=== PATIENT | female | born 1990 | race Caucasian/White ===

== ENCOUNTER 2016-08-24 14:09 | Emergency (ER) | payer MEDICAID ==
[~2016-08-24] VITALS: Ht 175.3 cm; Wt 102.1 kg
[~2016-08-24 14:09] MED LIST: ACET1TAB43 PO; AMOX500C2 PO; BENZ56AE TP; CEPH-507 PO; CEPH500C PO; CLIN150C17 PO; CLIN300C11 PO; CODE-54 PO; CPR500T PO; DCS100C PO; DOCU100C37 PO; FERR-74 PO; FRS325T PO; HYOS0.1216 PO; IBUP-1773 PO; Ibuprofen PO; METR500T PO; ONDA-42 SL; ONDAN4ODT PO; PNT40TEC PO; PNV1TABL67 PO; PREN-53 PO; PREN1TAB71 PO
--- OUTSIDE RECORDS SUMMARY | 2016-08-24 14:16 | XMS REPORT | Continuity of Care Document ---
Author Author [facility] Organization [facility] Address Unknown Phone Unavailable Care Team Providers Care Med Care Manager Name Role Phone [facility] PCP Insurance Providers Payer Name Policy Number Subscriber Name Relationship [facility] [employer] [id number] Michelle Szymanski 19 Self / Same As Patient Advance Directives Directive Response Recorded Date/Time Advance Directives No 11/22/14 4:02pm Health Care Power of Collar Packer No 11/22/14 4:02pm Organ Donor No 11/22/14 4:02pm Resuscitation Status Full Code 11/22/14 4:02pm Problems Medical Problems Problem Onset Date Status Epigastric abdominal pain Unknown Active Urinary tract infection Unknown Active Generalized abdominal pain Unknown Active Diarrhea Unknown Active Nausea and vomiting Unknown Active Urinary tract infection Unknown Active Pain, abdominal, nonspecific Unknown Active Medications Medication Dose Route Sig Days/Qty Instructions Order Date Discontinued Date Status Ondansetron HCl 8 Mg PO EVERY 4HRS 30 Qty 10/12/12 01/23/13 Discontinued Amoxicillin 2 Each PO TWICE A DAY 10/15/12 01/23/13 Discontinued Metronidazole 1 Each PO TWICE A DAY 7 Days 01/30/13 02/14/14 Discontinued Cephalexin Monohydrate (Keflex) 1 Each PO FOUR TIMES DAILY 7 Days 01/3002/14/14 Discontinued Vit/Fe Fumarate/Fa 1 Tab PO DAILY 30 Qty 02/14/14 06/28/14 Discontinued Acetaminophen/Codeine 1-2 Tab PO EVERY 4HRS PRN MODERATE TO SEVERE PAIN 30 Qty 03/04/14 06/28/14 Discontinued Benzocaine/Menthol 0 Ml TP DIRECTED PRN PAIN 1 Qty 03/04/14 Discontinued Docusate Sodium 100 Mg PO TWICE A DAY 20 Qty 03/04/14 06/28/14 Discontinued Ferrous Sulfate 325 Mg PO DAILY@08 30 Qty 03/04/14 06/28/14 Discontinued [Ibuprofen] 600 Mg PO EVERY 6 HOURS 60 Qty 03/04/14 06/28/14 Discontinued Hyoscyamine Sulfate 1-2 Each PO Q4HR PRN PRN ABDOMINAL PAIN 10 Qty 10/07 Active Pantoprazole Sod 40 Mg PO DAILY 30 Qty 06/28/14 Active Ciprofloxacin 500 Mg PO TWICE A DAY 14 Qty 11/21/14 Active Ondansetron Hcl 4 Mg SL EVERY 4HRS PRN NAUSEA/VOMITING 10 Qty FOR NAUSEA AND VOMITING 11/21/14 Active Social History Social History Problem Response Recorded Date/Time Alcohol Use Rarely Uses 11/22/2014 4:02pm Recreational Drug Use No 11/22/2014 4:02pm Recent Foreign Travel No 03/03/2014 5:27am Recent Infectious Disease Exposure No 03/03/2014 5:27am Hospitalization with Isolation Denies 03/05/2014 1:54pm Sexually Transmitted Disease No 11/22/2014 4:02pm Smoking Status Current Everyday Smoker 11/22/2014 4:02pm Query Response Start Date Stop Date Smoking Status Current Everyday Smoker Hospital Discharge Instructions No hospital discharge instructions. Plan of Care No plan of care. Functional Status No functional status results. Allergies, Adverse Reactions, Alerts Allergen Type Severity Reaction Status Last Updated No Known Drug Allergies Active 10/12/12 Immunizations Name Given Type Tetanus Booster (TDap) Unknown Historical Vital Signs Acute Vital Signs Vital Response Date/Time Temperature (Fahrenheit) 97.6 degrees F (97.6 - 99.5) Temperature (Calculated Celsius) 36.90621 degrees C (36.4 - 37.5) Temperature Source Temporal Pulse Rate (adult) 60 bpm (60 - 90) Respiratory Rate 18 bpm (12 - 24) O2 Sat by Pulse Oximetry 98 % (88 - 100) Blood Pressure 114/53 mm Hg Pain Pain Intensity 5 Height (Feet) 5 feet Height (Inches) 10 inches Height (Calculated Centimeters) 177.920681 cm Weight (Pounds) 215 pounds Weight (Ounces) 0.6 oz Weight (Calculated Grams) 22593.361 gm Weight (Calculated Kilograms) 97.034465 kilograms Calculated BMI 30.85 Results Laboratory Results Test Name Result Units Flags Reference Collection Date/Time Result Date/ Time Comments White Blood Count 10.6 10^3/uL 4.3-11.0 11/21/2014 2:11/21/2014 2: 38am Red Blood Count 4.86 10^6/uL 4.35-5.85 11/21/2014 2:11/21/2014 2: 38am Hemoglobin 15.0 G/DL 11.5-16.0 11/21/2014 2:11/21/2014 2:38am Hematocrit 44 % 35-52 11/21/2014 2:11/21/2014 2:38am Mean Corpuscular Volume 90 FL 80-99 11/21/2014 2:11/21/2014 2: 38am Mean Corpuscular Hemoglobin 31 PG 25-34 11/21/2014 2:11/21/2014 2: 38am Mean Corpuscular Hemoglobin Concent 34 G/DL 32-36 11/21/2014 2: 2:38am Red Cell Distribution Width 12.6 % 10.0-14.5 11/21/2014 2:2014 2:38am Platelet Count 268 10^3/uL 130-400 11/21/2014 2:11/21/2014 2:38am Mean Platelet Volume 9.9 FL 7.4-10.4 11/21/2014 2:11/21/2014 2: 38am Neutrophils (%) (Auto) 60 % 42-75 11/21/2014 2:11/21/2014 2:38am Lymphocytes (%) (Auto) 30 % 12-44 11/21/2014 2:11/21/2014 2:38am Monocytes (%) (Auto) 7 % 0-12 11/21/2014 2:11/21/2014 2:38am Eosinophils (%) (Auto) 2 % 0-10 11/21/2014 2:11/21/2014 2:38am Basophils (%) (Auto) 0 % 0-10 11/21/2014 2:11/21/2014 2:38am Neutrophils # (Auto) 6.4 X 10^3 1.8-7.8 11/21/2014 2:11/21/2014 2: 38am Lymphocytes # (Auto) 3.2 X 10^3 1.0-4.0 11/21/2014 2:11/21/2014 2: 38am Monocytes # (Auto) 0.8 X 10^3 0.0-1.0 11/21/2014 2:11/21/2014 2: 38am Eosinophils # (Auto) 0.3 10^3/uL 0.0-0.3 11/21/2014 2:11/21/2014 2 :38am Basophils # (Auto) 0.0 10^3/uL 0.0-0.1 11/21/2014 2:11/21/2014 2: 38am Urine Color YELLOW 11/21/2014 2:11/21/2014 2:34am Urine Clarity CLEAR 11/21/2014 2:11/21/2014 2:34am Urine pH 6 5-9 11/21/2014 2:11/21/2014 2:34am Urine Specific [place] 1.020 1.016-1.022 11/21/2014 2:2014 2:34am Urine Protein 1+ * NEGATIVE 11/21/2014 2:11/21/2014 2:34am Urine Glucose (UA) NEGATIVE NEGATIVE 11/21/2014 2:11/21/2014 2: 34am Urine RBC (Auto) NEGATIVE NEGATIVE 11/21/2014 2:11/21/2014 2: 34am Urine Ketones NEGATIVE NEGATIVE 11/21/2014 2:11/21/2014 2:34am Urine Nitrite NEGATIVE NEGATIVE 11/21/2014 2:11/21/2014 2:34am Urine Bilirubin NEGATIVE NEGATIVE 11/21/2014 2:11/21/2014 2: 34am Urine Urobilinogen NORMAL MG/DL NORMAL 11/21/2014 2:11/21/2014 2: 34am Urine Leukocyte Esterase 2+ * NEGATIVE 11/21/2014 2:11/21/2014 2: 34am Urine RBC NONE /HPF 11/21/2014 2:11/21/2014 2:34am Urine WBC 10-25 /HPF * 11/21/2014 2:11/21/2014 2:34am Urine Bacteria LARGE /HPF * 11/21/2014 2:11/21/2014 2:34am Urine Squamous Epithelial Cells 25-50 /HPF * 11/21/2014 2:2014 2:34am Urine Crystals NONE /LPF 11/21/2014 2:11/21/2014 2:34am Urine Casts NONE /LPF 11/21/2014 2:11/21/2014 2:34am Urine Mucus LARGE /LPF * 11/21/2014 2:11/21/2014 2:34am Urine Culture Indicated YES 11/21/2014 2:11/21/2014 2:34am Sodium Level 138 MMOL/L 135-145 11/21/2014 2:11/21/2014 2:57am Potassium Level 3.9 MMOL/L 3.6-5.0 11/21/2014 2:11/21/2014 2:57am Chloride Level 107 MMOL/L 98-107 11/21/2014 2:11/21/2014 2:57am Carbon Dioxide Level 20 MMOL/L L 21-32 11/21/2014 2:11/21/2014 2: 57am Blood Urea Nitrogen 11 MG/DL 7-18 11/21/2014 2:11/21/2014 2:57am Creatinine 0.73 MG/DL 0.60-1.30 11/21/2014 2:11/21/2014 2:57am BUN/Creatinine Ratio 15 11/21/2014 2:11/21/2014 2:57am Estimat Glomerular Filtration Rate > 60 11/21/2014 2:2014 2:57am GFR INTERPRETIVE DATA UNITS FOR ESTIMATED GFR (eGFR): mL/min/1.73 M2 REFERENCE RANGE FOR ESTIMATED GFR (eGFR) eGFR NORMAL eGFR >60 MODERATELY DECREASED eGFR 30-59 SEVERLY DECREASED eGFR 15-29 KIDNEY FAILURE <15 (OR DIALYSIS) Glucose Level 88 MG/DL 70-105 11/21/2014 2:11/21/2014 2:57am Calcium Level 9.4 MG/DL 8.5-10.1 11/21/2014 2:11/21/2014 2:57am Magnesium Level 2.1 MG/DL 1.8-2.4 11/21/2014 2:11/21/2014 2:57am Total Bilirubin 0.4 MG/DL 0.1-1.0 11/21/2014 2:11/21/2014 2:57am Alkaline Phosphatase 95 U/L 40-136 11/21/2014 2:11/21/2014 2:57am Aspartate Amino Transf (AST/SGOT) 17 U/L 5-34 11/21/2014 2:2014 2:57am Alanine Aminotransferase (ALT/SGPT) 12 U/L 0-55 11/21/2014 2:11/21 2:57am Total Protein 7.2 G/DL 6.4-8.2 11/21/2014 2:11/21/2014 2:57am Albumin 4.3 G/DL 3.2-4.5 11/21/2014 2:11/21/2014 2:57am Lipase 27 U/L 8-78 11/21/2014 2:11/21/2014 2:57am White Blood Count 9.0 10^3/uL 4.3-11.0 11/22/2014 4:11/22/2014 4: 24pm Red Blood Count 4.68 10^6/uL 4.35-5.85 11/22/2014 4:11/22/2014 4: 24pm Hemoglobin 14.7 G/DL 11.5-16.0 11/22/2014 4:11/22/2014 4:24pm Hematocrit 43 % 35-52 11/22/2014 4:11/22/2014 4:24pm Mean Corpuscular Volume 91 FL 80-99 11/22/2014 4:11/22/2014 4: 24pm Mean Corpuscular Hemoglobin 31 PG 25-34 11/22/2014 4:11/22/2014 4: 24pm Mean Corpuscular Hemoglobin Concent 35 G/DL 32-36 11/22/2014 4: 4:24pm Red Cell Distribution Width 12.5 % 10.0-14.5 11/22/2014 4:2014 4:24pm Platelet Count 248 10^3/uL 130-400 11/22/2014 4:11/22/2014 4:24pm Mean Platelet Volume 10.0 FL 7.4-10.4 11/22/2014 4:11/22/2014 4: 24pm Neutrophils (%) (Auto) 63 % 42-75 11/22/2014 4:11/22/2014 4:24pm Lymphocytes (%) (Auto) 26 % 12-44 11/22/2014 4:11/22/2014 4:24pm Monocytes (%) (Auto) 7 % 0-12 11/22/2014 4:11/22/2014 4:24pm Eosinophils (%) (Auto) 3 % 0-10 11/22/2014 4:11/22/2014 4:24pm Basophils (%) (Auto) 0 % 0-10 11/22/2014 4:11/22/2014 4:24pm Neutrophils # (Auto) 5.7 X 10^3 1.8-7.8 11/22/2014 4:11/22/2014 4: 24pm Lymphocytes # (Auto) 2.4 X 10^3 1.0-4.0 11/22/2014 4:11/22/2014 4: 24pm Monocytes # (Auto) 0.6 X 10^3 0.0-1.0 11/22/2014 4:11/22/2014 4: 24pm Eosinophils # (Auto) 0.3 10^3/uL 0.0-0.3 11/22/2014 4:11/22/2014 4 :24pm Basophils # (Auto) 0.0 10^3/uL 0.0-0.1 11/22/2014 4:11/22/2014 4: 24pm Urine Color YELLOW 11/22/2014 4:pm 11/22/2014 4:43pm Urine Clarity CLEAR 11/22/2014 4:pm 11/22/2014 4:43pm Urine pH 6 5-9 11/22/2014 4:11/22/2014 4:43pm Urine Specific [place] 1.015 * 1.016-1.022 11/22/2014 4:2014 4:43pm Urine Protein NEGATIVE NEGATIVE 11/22/2014 4:pm 11/22/2014 4:43pm Urine Glucose (UA) NEGATIVE NEGATIVE 11/22/2014 4:11/22/2014 4: 43pm Urine RBC (Auto) NEGATIVE NEGATIVE 11/22/2014 4:11/22/2014 4: 43pm Urine Ketones NEGATIVE NEGATIVE 11/22/2014 4:11/22/2014 4:43pm Urine Nitrite NEGATIVE NEGATIVE 11/22/2014 4:11/22/2014 4:43pm Urine Bilirubin NEGATIVE NEGATIVE 11/22/2014 4:11/22/2014 4: 43pm Urine Urobilinogen NORMAL MG/DL NORMAL 11/22/2014 4:11/22/2014 4: 43pm Urine Leukocyte Esterase NEGATIVE NEGATIVE 11/22/2014 4:2014 4:43pm Urine RBC NONE /HPF 11/22/2014 4:11/22/2014 4:43pm Urine WBC NONE /HPF 11/22/2014 4:11/22/2014 4:43pm Urine Bacteria TRACE /HPF 11/22/2014 4:11/22/2014 4:43pm Urine Squamous Epithelial Cells 0-2 /HPF 11/22/2014 4:2014 4:43pm Urine Crystals NONE /LPF 11/22/2014 4:11/22/2014 4:43pm Urine Casts NONE /LPF 11/22/2014 4:11/22/2014 4:43pm Urine Mucus NEGATIVE /LPF 11/22/2014 4:11/22/2014 4:43pm Urine Culture Indicated NO 11/22/2014 4:11/22/2014 4:43pm Sodium Level 139 MMOL/L 135-145 11/22/2014 4:16pm 11/22/2014 4:43pm Potassium Level 3.7 MMOL/L 3.6-5.0 11/22/2014 4:16pm 11/22/2014 4:43pm Chloride Level 109 MMOL/L H 98-107 11/22/2014 4:16pm 11/22/2014 4:43pm Carbon Dioxide Level 22 MMOL/L 21-32 11/22/2014 4:16pm 11/22/2014 4: 43pm Blood Urea Nitrogen 11 MG/DL 7-18 11/22/2014 4:16pm 11/22/2014 4:43pm Creatinine 0.76 MG/DL 0.60-1.30 11/22/2014 4:16pm 11/22/2014 4:43pm BUN/Creatinine Ratio 14 11/22/2014 4:16pm 11/22/2014 4:43pm Estimat Glomerular Filtration Rate > 60 11/22/2014 4:16pm 2014 4:43pm GFR INTERPRETIVE DATA UNITS FOR ESTIMATED GFR (eGFR): mL/min/1.73 M2 REFERENCE RANGE FOR ESTIMATED GFR (eGFR) eGFR NORMAL eGFR >60 MODERATELY DECREASED eGFR 30-59 SEVERLY DECREASED eGFR 15-29 KIDNEY FAILURE <15 (OR DIALYSIS) Glucose Level 93 MG/DL 70-105 11/22/2014 4:16pm 11/22/2014 4:43pm Calcium Level 9.4 MG/DL 8.5-10.1 11/22/2014 4:16pm 11/22/2014 4:43pm Lipase 40 U/L 8-78 11/22/2014 4:16pm 11/22/2014 4:43pm Procedures No known history of procedures. Encounters Encounter Location Date/Time Departed Emergency Room Via [facility] 11/22/14 3:51pm Departed Emergency Room [facility] 11/21/14 1:00am Recent Diagnosis
[2016-08-24 14:28] VITALS: BP 119/78
[2016-08-24] MEDS ORDERED: CITA40TA19 PO (14:35)
[2016-08-25] MEDS ORDERED: PRD20T PO (03:15)
== END 2016-08-24 15:41 | disposition left against medical advice (07) ==
LOC: EDUNIT# 14:09 → ER 14:12
DX: R21 Rash and other nonspecific skin eruption (principal); F17.210 Nicotine dependence, cigarettes, uncomplicated; Z53.21 Procedure and treatment not carried out due to patient leaving prior to being seen by health care provider
CPT/HCPCS: 99281

== ENCOUNTER 2016-08-25 01:59 | Emergency (ER) | payer MEDICAID ==
[~2016-08-25] VITALS: Ht 177.8 cm; Wt 111.1 kg
[~2016-08-25 01:59] MED LIST changes: +CITA40TA19 PO
--- OUTSIDE RECORDS SUMMARY | 2016-08-25 02:05 | XMS REPORT | Continuity of Care Document ---
Author Author [facility] Organization [facility] Address Unknown Phone Unavailable Care Team Providers Care Construction Equipment Overhauler Name Role Phone [facility] PCP Insurance Providers Payer Name Policy Number Subscriber Name Relationship [facility] [employer] [id number] Michelle Szymanski 19 Self / Same As Patient Advance Directives Directive Response Recorded Date/Time Advance Directives No 11/22/14 4:02pm Health Care Power of Director Immunology No 11/22/14 4:02pm Organ Donor No 11/22/14 [...] F (97.6 - 99.5) Temperature (Calculated Celsius) 36.48810 degrees C (36.4 - 37.5) Temperature Source Temporal Pulse Rate (adult) 60 bpm (60 - 90) Respiratory Rate 18 bpm (12 - 24) O2 Sat by Pulse Oximetry 98 % (88 - 100) Blood Pressure 114/53 mm Hg Pain Pain Intensity 5 Height (Feet) 5 feet Height (Inches) 10 inches Height (Calculated Centimeters) 177.999990 cm Weight (Pounds) 215 pounds Weight (Ounces) 0.6 oz Weight (Calculated Grams) 64127.361 gm Weight (Calculated Kilograms) 97.516673 kilograms Calculated BMI 30.85 Results Laboratory Results [...] 6 5-9 11/21/2014 2:11/21/2014 2:34am Urine Specific [place] 1.020 1.016-1.022 11/21/2014 2:2014 2:34am Urine Protein [...] 6 5-9 11/22/2014 4:11/22/2014 4:43pm Urine Specific [place] 1.015 * 1.016-1.022 11/22/2014 4:2014 4:43pm Urine [...] Encounter Location Date/Time Departed Emergency Room [facility] 11/22/14 3:51pm Departed Emergency Room [facility] 11/21/14 1:00am Recent Diagnosis
[2016-08-25] MEDS ORDERED: methylPREDNISolone 125 MG (Solu-MEDROL) VIAL IM ONE (03:00)
[2016-08-25] MEDS ORDERED: diphenhydrAMINE 50 MG/ML INJ (BENADRYL) IM ONE (03:00)
--- NOTE | 2016-08-25 03:11 | ED General ---
General Chief Complaint: Allergic Reaction Stated Complaint: POSS ALLERGIC RXN Nursing Triage Note: PT TO ED 6 W/ C/O RASH ONSET INTERMITTENTLY X1-2MOS, WORSE YESTERDAY. HIVES NOTED TO TORSO ET LOWER EXTREMITIES. NO SWELLING TO TONGUE OR DIFFICUTLY BREATHING NOTED. PT DENIES ANY KNOWN IRRITANT Nursing Sepsis Screen: No Definite Risk Source of Information: Patient Exam Limitations: No Limitations History of Present Illness Time Seen by Provider: 02:42 Initial Comments This 25-year-old woman presents to emergency room with pruritic patchy rash for about the last 24 hours. She was placed on Bactrim about one week ago for suspected strep throat although the strep test was negative. She still has hoarse voice and cough despite Bactrim use. Her son was recently hospitalized at this facility for RSV. She has had 2 prior episodes of similar rash that was not as intense. She took a round of prednisone which did resolve the prior episodes. She has only taken Claritin for her present episode which did not seem to help much. She reports checking her home for bedbugs and none were found. Allergies and Home Medications Allergies Coded Allergies: sulfamethoxazole (Verified Allergy, Intermediate, RASH, 08/25/16) Pruritic rash trimethoprim (Verified Allergy, Intermediate, RASH, 08/25/16) Pruritic rash Uncoded Allergies: PCN (Adverse Reaction, Mild, RASH, 08/24/16) Home Medications Citalopram Hydrobromide 40 Mg Tablet 40 MG PO DAILY (Reported) Prednisone 20 Mg Tab #4 20 MG PO DAILY Prescribed by: ARA FRANCISCO on 08/25/16 [id number] Constitutional: no symptoms reported EENTM: see HPI Respiratory: see HPI Cardiovascular: no symptoms reported Gastrointestinal: no symptoms reported Genitourinary: no symptoms reported Musculoskeletal: no symptoms reported Skin: see HPI Psychiatric/Neurological: No Symptoms Reported Hematologic/Lymphatic: No Symptoms Reported Past Qpmhzdf-Lfagun-Ngzbce Hx Patient Social History Alcohol Use: Denies Use Recreational Drug Use: No Smoking Status: Current Everyday Smoker Type Used: Cigarettes Recent Foreign Travel: No Contact w/Someone Who Travel: No Recent Infectious Disease Expo: No Recent Hopitalizations: No Immunizations Up To Date Tetanus Booster (TDap): Less than 5yrs PED Vaccines UTD: No Seasonal Allergies Seasonal Allergies: Yes Surgeries HX Surgeries: Yes (PILONIDAL CYST) Respiratory Hx Respiratory Disorders: No Cardiovascular Hx Cardiac Disorders: No Neurological Hx Neurological Disorders: No Reproductive System Hx Reproductive Disorders: No Sexually Transmitted Disease: No Female Reproductive Disorders: Denies Genitourinary Hx Genitourinary Disorders: No Gastrointestinal Hx Gastrointestinal Disorders: No Musculoskeletal Hx Musculoskeletal Disorders: No Endocrine Hx Endocrine Disorders: No HEENT HX ENT Disorders: No Cancer Hx Cancer: No Psychosocial Hx Psychiatric Problems: Yes Behavioral Health Disorders: Depression Integumentary HX Skin/Integumentary Disorder: No Blood Transfusions Hx Blood Disorders: No Adverse Reaction to a Blood Tr: No Family Medical History Significant Family History: No Pertinent Family Hx, GI Disease Family Medial History: Arthritis 19 MOTHER, Onset: Asthma 19 FATHER Diabetes mellitus 19 FATHER, Onset:60 years & older Headache disorder 19 MOTHER, Onset: (migraine) Neoplasm 19 MOTHER, Onset: Physical Exam Vital Signs Vital Sign - Last 12Hours 08/25/16 02:28 Temp 98.5 Pulse 76 Resp 20 B/P 141/75 Pulse Ox 98 O2 Delivery Room Air Capillary Refill : Less Than 3 Seconds General Appearance: No Apparent Distress WD/WN HEENT: PERRL/EOMI TMs Normal Normal ENT Inspection Other (Small white patch on the left tonsillar surface) Neck: Normal Inspection Respiratory: Lungs Clear Normal Breath Sounds No Accessory Muscle Use No Respiratory Distress Cardiovascular: Regular Rate, Rhythm No Edema No Murmur Extremity: Normal Inspection No Pedal Edema Neurologic/Psychiatric: Alert Oriented x3 No Motor/Sensory Deficits Normal Mood/Affect line pilot II-XII Norm as Tested Skin: Warm/Dry Rash (Patchy erythematous macular rash resembling erythema multiforme a on extremities and trunk) Progress/Results/Core Measures Results/Orders Lab Results Laboratory Tests Test 08/25/16 02:50 Range/Units Group A Streptococcus Screen NEGATIVE NEGATIVE My Orders Orders-ARA ACEVEDO MD Diphenhydramine Injection (Benadryl Inje (08/25/16 03:00) Methylprednisolone Sod Succ (Solu-Medrol (08/25/16 03:00) Rapid Strep A Screen (08/25/16 02:53) Medications Given in ED Current Medications Medications Dose Ordered Sig/[place] Route Start Time Stop Time Status Last Admin Dose Admin Diphenhydramine HCl 25 mg ONCE ONCE IM 08/25/16 03:00 08/25/16 03:01 DC 08/25/16 03:06 25 MG Methylprednisolone Sodium Succinate 125 mg ONCE ONCE IM 08/25/16 03:00 08/25/16 03:01 DC 08/25/16 03:06 125 MG Vital Signs/I&O Vital Sign - Last 12Hours 08/25/16 08/25/16 02:28 03:22 Temp 98.5 Pulse 76 83 Resp 20 14 B/P 141/75 Pulse Ox 98 96 O2 Delivery Room Air Blood Pressure Mean: 97 Progress Note : Progress Note Patient received injections of Solu-Medrol and Benadryl. Departure Impression Impression: Primary Impression: Pruritic rash Disposition: HOME, SELF-CARE Condition: Improved Departure-Patient Inst. Decision time for Depature: 03:00 Referrals: [facility]/Family) Primary Care Physician Patient Instructions: Skin Rash (DC) Add. Discharge Instructions: Keep a journal of possible exposures in an effort to identify the cause of your rash. You may use nondrowsy antihistamines such as Claritin (loratadine) for control of daytime itching. Benadryl (diphenhydramine) may be used at times when drowsiness is not a concern. Complete the steroids as prescribed. Avoid use of Bactrim in the future. All discharge instructions reviewed with patient and/or family. Voiced understanding. Scripts Prednisone 20 Mg Tab20 Mg PO DAILY #4 TAB Prov:ARA ACEVEDO MD 08/25/16 ARA ACEVEDO MD Aug 25, 2016 03:11
[2016-08-25] MEDS ORDERED: PRD20T PO (03:15)
[2016-08-25 03:22] VITALS: BP 122/66
== END 2016-08-25 03:26 | disposition home or self-care (01) ==
LOC: EDUNIT# 01:59 → ER 02:01
DX: L29.9 Pruritus, unspecified (principal); F17.210 Nicotine dependence, cigarettes, uncomplicated
CPT/HCPCS: 87430; 96372; 99282

== ENCOUNTER 2016-10-01 23:39 | Emergency (ER) | payer MEDICAID ==
[~2016-10-01] VITALS: Ht 177.8 cm; Wt 111.1 kg
[~2016-10-01 23:39] MED LIST changes: +PRD20T PO
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
[2016-10-02] MEDS ORDERED: RX-CYCLOBENZAPRINE 10 MG (FLEXERIL) TAB PPK#3 PO STA (00:42)
[2016-10-02] MEDS ORDERED: NAPR500T3 PO (00:42)
[2016-10-02] MEDS ORDERED: CYCL10TA9 PO (00:42)
[2016-10-02] MEDS ORDERED: RX-NAPROXEN (NAPROSYN) 250 MG TAB PPK#4 PO STA (00:42)
[2016-10-02 00:56] VITALS: BP 138/80
--- NOTE | 2016-10-02 07:06 | Diagnostic Imaging Report ---
INDICATION: Pain. FINDINGS: Thoracic vertebral body heights maintained. The alignment is anatomic. The disc space is maintained. The endplates revealed no irregularity. IMPRESSION: Normal radiographic appearance of the anatomically aligned thoracic spine. Dictated by: Dictated on workstation # [id number]
--- NOTE | 2016-10-02 07:17 | Diagnostic Imaging Report ---
INDICATION: Pain FINDINGS: The lumbar vertebral body statures are normal. The alignment anatomic. The disc spaces preserved. No acute or suspicious endplate irregularity. IMPRESSION: Normal radiographic appearance of the anatomically aligned lumbar spine Dictated by: Dictated on workstation # [id number]
== END 2016-10-02 00:50 | disposition home or self-care (01) ==
LOC: EDUNIT# 23:39 → ER 23:42
DX: S29.012A Strain of muscle and tendon of back wall of thorax, initial encounter (principal); M54.5 Low back pain; G89.29 Other chronic pain; W50.0XXA Accidental hit or strike by another person, initial encounter; Y92.009 Unspecified place in unspecified non-institutional (private) residence as the place of occurrence of the external cause; Y99.8 Other external cause status
CPT/HCPCS: 72070; 72100; 99281

== ENCOUNTER 2017-07-11 13:09 | Emergency (ER) | payer OTHER, MEDICAID ==
[~2017-07-11] VITALS: Ht 177.8 cm; Wt 95.3 kg
[~2017-07-11 13:09] MED LIST changes: +CYCL10TA9 PO; -FERR-74 PO; +FERR325T18 PO; +NAPR500T4 PO
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
[2017-07-11] MEDS ORDERED: HYDROcodone/APAP 5 MG/325 MG (LORTAB) TAB PO STA (14:59)
[2017-07-11] MEDS ORDERED: CYCLOBENZAPRINE 10 MG (FLEXERIL) TAB PO STA (14:59)
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
[2017-07-11] MEDS ORDERED: CYCL10TA9 PO (16:01)
[2017-07-11] MEDS ORDERED: NAPR-1071 PO (16:01)
[2017-07-11 16:17] VITALS: BP 134/83
== END 2017-07-11 16:17 | disposition home or self-care (01) ==
LOC: EDUNIT# 13:09 → ER 13:12
DX: S39.012A Strain of muscle, fascia and tendon of lower back, initial encounter (principal); F32.9 Major depressive disorder, single episode, unspecified; F17.210 Nicotine dependence, cigarettes, uncomplicated; V47.5XXA Car driver injured in collision with fixed or stationary object in traffic accident, initial encounter
CPT/HCPCS: 72131; 99283

== ENCOUNTER 2018-10-13 18:04 | Emergency (ER) | payer SELFPAY ==
[~2018-10-13] VITALS: Ht 177.8 cm; Wt 104.3 kg
[~2018-10-13 18:04] MED LIST changes: +CITA20TA9; +NAPR-1071 PO; +NAPR-915 PO; -NAPR500T4 PO
--- OUTSIDE RECORDS SUMMARY | 2018-10-13 18:09 | XMS REPORT | Continuity of Care Document ---
Author Organization Unknown Address Unknown Allergies There is no data. Medications There is no data. Problems Date Dx Coded Attending Type Code Diagnosis Diagnosed By 07/13/2012 382.9 OTITIS MEDIA 07/13/2012 DAMARIS CLINTON DO K 382.9 OTITIS MEDIA 07/13/2012 KEYLA MARCOS APRNIA R 382.9 OTITIS MEDIA 07/13/2012 MOY CM APRNNDA S 382.9 OTITIS MEDIA 07/13/2012 SOILA DEE CARON S 382.9 OTITIS MEDIA 11/06/2012 DAVID CLINTON DOA K 790.6 Liver Function Test, Abnormal 11/06/2012 DAMARIS CLINTON DO K V70.0 EXAM - ROUTINE H&P 11/06/2012 ENE MARCOS APRNRICIA R 790.6 Liver Function Test, Abnormal 11/06/2012 PRITI DEE, NILS R V70.0 EXAM - ROUTINE H&P 11/06/2012 MOY CM APRNNDA S 790.6 Liver Function Test, Abnormal 11/06/2012 SOILA DEE, CARON S V70.0 EXAM - ROUTINE H&P 11/06/2012 MOY CM APRNNDA S 790.6 Liver Function Test, Abnormal 11/06/2012 SOILA DEE CARON S V70.0 EXAM - ROUTINE H&P 01/30/2014 KEYLA MARCOS APRNIA R 692.9 CONTACT DERMATITIS AND OTHER ECZEMA UNSPECIFIED CAUSE 01/30/2014 SOILA DEE CARON S 692.9 CONTACT DERMATITIS AND OTHER ECZEMA UNSPECIFIED CAUSE 01/30/2014 SOILA DEE CARON S 692.9 CONTACT DERMATITIS AND OTHER ECZEMA UNSPECIFIED CAUSE 06/03/2014 MOY CM APRNNDA S 724.3 SCIATICA 06/03/2014 SOILA DEE CARON S 724.3 SCIATICA 06/29/2014 CARON CM APRN 789.00 ABDOMINAL PAIN UNSPECIFIED SITE 07/13/2014 CARON CM APRN 626.0 AMENORRHEA Procedures Code Description Performed By Performed On J1040 DEPO MEDROL 80 MG INJ 01/30/2014 64244 THERAPUTIC INJ SQ/IM 01/30/2014 13315 US GALLBLADDER ULTRASOUND 07/03/2014 93623 HIDA SCAN 07/13/2014 [id number] HCG QUALITATIVE W/ REFLEX 07/13/2014 Results There is no data. Encounters ACCT No. Visit Date/Time Discharge Status Pt. Type Provider Facility Loc./Unit Complaint [id number] 06/29/2014 14:38:00 06/29/2014 23:59:59 CLS Outpatient CARON CM APRN [id number] 06/03/2014 09:38:00 06/03/2014 23:59:59 CLS Outpatient CARON CM APRN [id number] 01/30/2014 13:38:00 01/30/2014 23:59:59 CLS Outpatient NILS MARCOS APRN [id number] 11/06/2012 15:04:00 11/06/2012 23:59:59 CLS Outpatient DAMARIS CLINTON DO [id number] 07/13/2012 13:57:00 07/13/2012 23:59:59 CLS Outpatient
[2018-10-13 18:20] LABS: BASOPHILS % (AUTO) 0 % (0-10); EOSINOPHILS # (AUTO) 0.1 10^3/uL (0.0-0.3); EOSINOPHILS % (AUTO) 1 % (0-10); HEMATOCRIT 41 % (35-52); HEMOGLOBIN 14.4 G/DL (11.5-16.0); LYMPHOCYTES # (AUTO) 2.4 X 10^3 (1.0-4.0); LYMPHOCYTES % (AUTO) 23 % (12-44); MEAN CORPUSCULAR HEMOGLOBIN 32 PG (25-34); MEAN CORPUSCULAR HGB CONC 35 G/DL (32-36); MEAN CORPUSCULAR VOLUME 93 FL (80-99); MEAN PLATELET VOLUME 9.6 FL (7.4-10.4); MONOCYTES # (AUTO) 0.7 X 10^3 (0.0-1.0); MONOCYTES % (AUTO) 6 % (0-12); NEUTROPHILS # (AUTO) 7.6 X 10^3 (1.8-7.8); NEUTROPHILS % (AUTO) 70 % (42-75); PLATELET COUNT 296 10^3/uL (130-400); RED CELL DISTRIBUTION WIDTH 13.2 % (10.0-14.5); WHITE BLOOD COUNT 10.9 10^3/uL (4.3-11.0)
--- NOTE | 2018-10-13 18:25 | ED General ---
General Stated Complaint: OVERDOSE Source of Information: Patient Exam Limitations: No Limitations History of Present Illness Date Seen by Provider: Oct 13, 2018 Time Seen by Provider: 18:20 Initial Comments To ER with c/o overdose as suicide attempt. Took 28 of the 50mg vistaril at 5pm. States ongoing depression worse than usual for 3 weeks culminating in overdose at 5pm today after argument with boyfriend. She reportedly wrote a suicide note. Timing/Duration: 1-3 Hours, Intermittent Severity: Moderate Associated Systoms: Denies Symptoms Allergies and Home Medications Allergies Coded Allergies: sulfamethoxazole (Verified Allergy, Intermediate, RASH, 08/25/16) Pruritic rash trimethoprim (Verified Allergy, Intermediate, RASH, 08/25/16) Pruritic rash Uncoded Allergies: PCN (Adverse Reaction, Mild, RASH, 08/24/16) Home Medications Cyclobenzaprine HCl 10 Mg Tablet, 10 MG PO BID PRN for SPASMS Prescribed by: EDIN GATES on 07/11/17 1601 Naproxen 500 Mg Tablet, 500 MG PO BID PRN for PAIN-MODERATE Prescribed by: EDIN GATES on 07/11/17 1601 Patient Home Medication List Home Medication List Reviewed: Yes Review of Systems Review of Systems Constitutional: see HPI EENTM: see HPI Respiratory: no symptoms reported Cardiovascular: no symptoms reported Genitourinary: no symptoms reported Musculoskeletal: no symptoms reported Skin: no symptoms reported Psychiatric/Neurological: See HPI, Depressed Hematologic/Lymphatic: No Symptoms Reported Immunological/Allergic: no symptoms reported Past Fywcgin-Ycxqyw-Fnplpf Hx Patient Social History Drug of Choice: THC CURRENTLY, SPEED IN THE PAST Type Used: Cigarettes Recent Hopitalizations: No Immunizations Up To Date Tetanus Booster (TDap): Less than 5yrs PED Vaccines UTD: No Seasonal Allergies Seasonal Allergies: Yes Past Medical History Surgeries: Yes (PILONIDAL CYST) Respiratory: No Cardiac: No Neurological: No Reproductive Disorders: No Female Reproductive Disorders: Denies Sexually Transmitted Disease: No Genitourinary: No Gastrointestinal: No Musculoskeletal: Yes ("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" ) Endocrine: No HEENT: No Cancer: No Psychosocial: Yes Anxiety, Suicide Attempts, Depression Integumentary: No Blood Disorders: No Adverse Reaction/Blood Tranf: No Family Medical History Arthritis 19 MOTHER, Onset:30's - 40 Asthma 19 FATHER Diabetes mellitus 19 FATHER, Onset:60 years & older Headache disorder 19 MOTHER, Onset: - (migraine) Neoplasm 19 MOTHER, Onset:30s - 40 No Pertinent Family Hx, GI Disease Physical Exam Vital Signs Vital Signs - First Documented 10/13/18 18:04 Pulse 82 Resp 15 B/P (MAP) 119/66 (83) Pulse Ox 100 O2 Delivery Room Air Capillary Refill : Height, Weight, BMI Height: 5'9.00" Weight: 200lbs. 0.0oz. 90.043189th; 38.0 BMI Method:Estimated General Appearance: No Apparent Distress, WD/WN Eyes: Bilateral Eye Normal Inspection, Bilateral Eye PERRL, Bilateral Eye EOMI HEENT: PERRL/EOMI, TMs Normal Respiratory: Normal Breath Sounds, No Accessory Muscle Use, No Respiratory Distress Cardiovascular: Regular Rate, Rhythm, Normal Peripheral Pulses Gastrointestinal: Normal Bowel Sounds, Non Tender, Soft Extremity: Normal Capillary Refill, Normal Inspection Neurologic/Psychiatric: Alert, Oriented x3 Skin: Normal Color, Warm/Dry Progress/Results/Core Measures Suspected Sepsis SIRS Temperature: Pulse: Respiratory Rate: Laboratory Tests 10/13/18 18:13: White Blood Count 10.9 Blood Pressure / Mean: Laboratory Tests 10/13/18 18:13: Creatinine 0.77, Platelet Count 296, Total Bilirubin 0.3 Results/Orders Lab Results Laboratory Tests Test 10/13/18 18:13 10/13/18 18:44 Range/Units White Blood Count 10.9 4.3-11.0 10^3/uL Red Blood Count 4.47 4.35-5.85 10^6/uL Hemoglobin 14.4 11.5-16.0 G/DL Hematocrit 41 35-52 % Mean Corpuscular Volume 93 80-99 FL Mean Corpuscular Hemoglobin 32 25-34 PG Mean Corpuscular Hemoglobin Concent 35 32-36 G/DL Red Cell Distribution Width 13.2 10.0-14.5 % Platelet Count 296 130-400 10^3/uL Mean Platelet Volume 9.6 7.4-10.4 FL Neutrophils (%) (Auto) 70 42-75 % Lymphocytes (%) (Auto) 23 12-44 % Monocytes (%) (Auto) 6 0-12 % Eosinophils (%) (Auto) 1 0-10 % Basophils (%) (Auto) 0 0-10 % Neutrophils # (Auto) 7.6 1.8-7.8 X 10^3 Lymphocytes # (Auto) 2.4 1.0-4.0 X 10^3 Monocytes # (Auto) 0.7 0.0-1.0 X 10^3 Eosinophils # (Auto) 0.1 0.0-0.3 10^3/uL Basophils # (Auto) 0.0 0.0-0.1 10^3/uL Sodium Level 140 135-145 MMOL/L Potassium Level 3.5 L 3.6-5.0 MMOL/L Chloride Level 108 H 98-107 MMOL/L Carbon Dioxide Level 20 L 21-32 MMOL/L Anion Gap 12 5-14 MMOL/L Blood Urea Nitrogen 9 7-18 MG/DL Creatinine 0.77 0.60-1.30 MG/DL Estimat Glomerular Filtration Rate > 60 BUN/Creatinine Ratio 12 Glucose Level 92 70-105 MG/DL Calcium Level 9.7 8.5-10.1 MG/DL Corrected Calcium 9.3 8.5-10.1 MG/DL Total Bilirubin 0.3 0.1-1.0 MG/DL Aspartate Amino Transf (AST/SGOT) 15 5-34 U/L Alanine Aminotransferase (ALT/SGPT) 12 0-55 U/L Alkaline Phosphatase 65 40-136 U/L Total Protein 7.2 6.4-8.2 GM/DL Albumin 4.5 3.2-4.5 GM/DL Serum Test, Qualitative NEGATIVE NEGATIVE Salicylates Level < 5.0 L 5.0-20.0 MG/DL Acetaminophen Level < 10 L 10-30 UG/ML Serum Alcohol < 10 <10 MG/DL Urine Color YELLOW Urine Clarity CLEAR Urine pH 7 5-9 Urine Specific [place] 1.005 L 1.016-1.022 Urine Protein NEGATIVE NEGATIVE Urine Glucose (UA) NEGATIVE NEGATIVE Urine Ketones NEGATIVE NEGATIVE Urine Nitrite NEGATIVE NEGATIVE Urine Bilirubin NEGATIVE NEGATIVE Urine Urobilinogen NORMAL NORMAL MG/DL Urine Leukocyte Esterase NEGATIVE NEGATIVE Urine RBC (Auto) NEGATIVE NEGATIVE Urine RBC NONE /HPF Urine WBC NONE /HPF Urine Squamous Epithelial Cells 2-5 /HPF Urine Crystals NONE /LPF Urine Bacteria TRACE /HPF Urine Casts NONE /LPF Urine Mucus NEGATIVE /LPF Urine Culture Indicated NO Urine Opiates Screen NEGATIVE NEGATIVE Urine Oxycodone Screen NEGATIVE NEGATIVE Urine Methadone Screen NEGATIVE NEGATIVE Urine Propoxyphene Screen NEGATIVE NEGATIVE Urine Barbiturates Screen NEGATIVE NEGATIVE Ur Tricyclic Antidepressants Screen NEGATIVE NEGATIVE Urine Phencyclidine Screen NEGATIVE NEGATIVE Urine Amphetamines Screen NEGATIVE NEGATIVE Urine Methamphetamines Screen NEGATIVE NEGATIVE Urine Benzodiazepines Screen NEGATIVE NEGATIVE Urine Cocaine Screen NEGATIVE NEGATIVE Urine Cannabinoids Screen POSITIVE H NEGATIVE My Orders Orders - RODERICK LOPEZ APRN Cbc With Automated Diff (10/13/18 18:12) Ekg Tracing (10/13/18 18:12) Continuous Ekg Monitoring (10/13/18 18:12) Comprehensive Metabolic Panel (10/13/18 18:12) Ua Culture If Indicated (10/13/18 18:12) Drug Screen Stat (Urine) (10/13/18 18:12) Hcg,Qualitative Serum (10/13/18 18:12) Ed Iv/Invasive Line Start (10/13/18 18:12) Salicylate (10/13/18 18:12) Acetaminophen (10/13/18 18:12) Alcohol (10/13/18 18:12) General/Regular (10/13/18 Dinner) Ekg Tracing (10/13/18 19:05) Sodium Bicarbonate 8.4% Syr (Sodium Bica (10/13/18 19:30) Sodium Bicarbonate 8.4% Syr (Sodium Bica (10/13/18 19:30) Sodium Bicarbonate 8.4% Syr (Sodium Bica (10/13/18 20:00) Magnesium 1 Gm/100 Ml Ivpb (Magnesium Ryder (10/13/18 20:00) Potassium Chloride (Tablet) (K Dur Table (10/13/18 20:00) Vital Signs/I&O 10/13/18 18:04 Pulse 82 Resp 15 B/P (MAP) 119/66 (83) Pulse Ox 100 O2 Delivery Room Air Capillary Refill : Departure Communication (Admissions) 1903-I have discussed with poison control, they recommended observing for 6-8 hours from the time of ingestion watching for symptoms of anticholinergic toxicity. 4 QRS rhythm 100 ms U2 to 3 mEq per kilogram of sodium bicarbonate IV , 4 QT C greater than 500 ms give 1-2 mg of magnesium IV. Serial EKG every 3 hours during this 6-8 hour observation.. Treatment for tachycardia hypertension or agitation with IV fluids and benzodiazepines. 6-the EKG shows an initial QRS O 110 ms, repeat EKG about 30 minutes later is 108 ms. Because of this will 150 mEq of sodium bicarbonate. We do not have any bed availability here in the intensive care unit she will require transfer to a different facility that does have that. I spoke with Dr. Ta at [facility] in [place] intensive care unit. Agrees to accept the patient. Recommends 40 mEq of potassium chloride and 2 g of magnesium sulfate IV. Impression Primary Impression: Prolongation of QRS complex on electrocardiography Additional Impression: Anticholinergic drug overdose Qualified Codes: T44.3X2A - Poisoning by other parasympatholytics [ anticholinergics and antimuscarinics] and spasmolytics, intentional self-harm, initial encounter Disposition: 02 XFER SHT-TRM HOSP Condition: Stable Departure-Patient Inst. Referrals: [facility]/NIKKI (PCP) Primary Care Physician CARON CM (Family) Primary Care Physician RODERICK LOPEZ APRN Oct 13, 2018 18:25
[2018-10-13 18:41] LABS: ALANINE AMINOTRANSFERASE 12 U/L (0-55); ALBUMIN 4.5 GM/DL (3.2-4.5); ALKALINE PHOSPHATASE 65 U/L (40-136); BILIRUBIN,TOTAL 0.3 MG/DL (0.1-1.0); BUN/CREATININE RATIO 12; CALCIUM 9.7 MG/DL (8.5-10.1); CARBON DIOXIDE 20 MMOL/L (21-32); CHLORIDE 108 MMOL/L (98-107); CREATININE SERUM 0.77 MG/DL (0.60-1.30); GFR ESTIMATED > 60; GLUCOSE 92 MG/DL (70-105); POTASSIUM 3.5 MMOL/L (3.6-5.0); SALICYLATE < 5.0 MG/DL (5.0-20.0); SODIUM 140 MMOL/L (135-145); TOTAL PROTEIN 7.2 GM/DL (6.4-8.2)
[2018-10-13 18:47] LABS: ACETAMINOPHEN < 10 UG/ML (10-30)
[2018-10-13 18:51] LABS: BILIRUBIN,URINE NEGATIVE (NEGATIVE); COLOR,URINE YELLOW; GLUCOSE, URINE (UA) NEGATIVE (NEGATIVE); KETONES,URINE NEGATIVE (NEGATIVE); LEUKOCYTE ESTERASE ,URINE NEGATIVE (NEGATIVE); NITRITE,URINE NEGATIVE (NEGATIVE); PH,URINE 7 (5-9); PROTEIN,URINE NEGATIVE (NEGATIVE); UROBILINOGEN,URINE NORMAL (NORMAL)
[2018-10-13 18:57] LABS: BACTERIA,URINE TRACE /HPF; CLARITY,URINE CLEAR
[2018-10-13 19:01] LABS: AMPHETAMINE SCREEN, URINE NEGATIVE (NEGATIVE); BARBITURATE SCREEN URINE NEGATIVE (NEGATIVE); BENZODIAZEPINES SCREEN URINE NEGATIVE (NEGATIVE); CANNABINOID SCREEN, URINE POSITIVE (NEGATIVE); COCAINE SCREEN URINE NEGATIVE (NEGATIVE); METHADONE STAT NEGATIVE (NEGATIVE); METHAMPHETAMINE SCREEN URINE S NEGATIVE (NEGATIVE); OPIATE SCREEN URINE NEGATIVE (NEGATIVE); OXYCODONE STAT NEGATIVE (NEGATIVE); PROPOXYPHENE STAT NEGATIVE (NEGATIVE); TRICYCLIC ANTIDEPRESSANTS SCRE NEGATIVE (NEGATIVE)
[2018-10-13] MEDS ORDERED: SODIUM BICARB 8.4% 50 MEQ/50 ML (ABBOTT) SYR IV ONE ×3 (19:30→20:00)
[2018-10-13] MEDS ORDERED: KCL 20 MEQ TAB (K-DUR) PO ONE (20:00)
[2018-10-13] MEDS: MAGNESIUM 1 GM/100 ML IVPB 100 ML IV SCH (20:10)
[2018-10-13 21:01] VITALS: BP 114/63
== END 2018-10-13 21:01 | disposition short-term general hospital (02) ==
LOC: EDUNIT# 18:04 → ER 18:04
DX: T44.3X2A Poisoning by other parasympatholytics [anticholinergics and antimuscarinics] and spasmolytics, intentional self-harm, initial encounter (principal); R94.31 Abnormal electrocardiogram [ECG] [EKG]; F32.9 Major depressive disorder, single episode, unspecified; F12.10 Cannabis abuse, uncomplicated; F41.9 Anxiety disorder, unspecified; Z88.2 Allergy status to sulfonamides; Z88.8 Allergy status to other drugs, medicaments and biological substances; Z88.0 Allergy status to penicillin
CPT/HCPCS: 36415; 80053; 80306; 80320; 80329; 81000; 84703; 85025; 93005; 96374; 96375

== ENCOUNTER 2019-07-15 11:53 | Emergency (ER) | payer SELFPAY ==
[~2019-07-15] VITALS: Ht 177 cm; Wt 107.0 kg
[2019-07-15] MEDS ORDERED: GBPN600T (12:09)
[2019-07-15] MEDS ORDERED: ARIP10TA10 PO (12:09)
[2019-07-15] MEDS ORDERED: PRD20T PO (12:11)
[2019-07-15] MEDS ORDERED: METH-313 PO (12:11)
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
[2019-07-15] MEDS ORDERED: ORPHENADRINE 60 MG/2 ML (NORFLEX) AMP IM ONE (12:15)
[2019-07-15] MEDS ORDERED: KETOROLAC 60 MG/2 ML VIAL IM ONE (12:15)
[2019-07-15 12:19] VITALS: BP 133/76
== END 2019-07-15 12:20 | disposition home or self-care (01) ==
LOC: EDUNIT# 11:53 → ER 11:54
DX: S39.012A Strain of muscle, fascia and tendon of lower back, initial encounter (principal); F41.9 Anxiety disorder, unspecified; F32.9 Major depressive disorder, single episode, unspecified; F17.210 Nicotine dependence, cigarettes, uncomplicated; Z88.2 Allergy status to sulfonamides; Z88.1 Allergy status to other antibiotic agents; Z88.0 Allergy status to penicillin; X50.1XXA Overexertion from prolonged static or awkward postures, initial encounter
CPT/HCPCS: 96372; 99284

== ENCOUNTER 2021-04-10 17:03 | Emergency (ER) | payer SELFPAY ==
[~2021-04-10] VITALS: Ht 177.8 cm; Wt 129.3 kg
[~2021-04-10 17:03] MED LIST changes: +ARIP10TA10 PO; -CLIN150C17 PO; +CLIN150C20 PO; -CLIN300C11 PO; +CLIN300C12 PO; +GBPN600T; +METH-313 PO
[2021-04-10 17:17] VITALS: BP 165/88
[2021-04-10 17:33] LABS: BILIRUBIN,URINE NEGATIVE (NEGATIVE); CLARITY,URINE CLOUDY; COLOR,URINE YELLOW; GLUCOSE, URINE (UA) NEGATIVE (NEGATIVE); KETONES,URINE TRACE (NEGATIVE); LEUKOCYTE ESTERASE ,URINE 1+ (NEGATIVE); NITRITE,URINE NEGATIVE (NEGATIVE); PROTEIN,URINE TRACE (NEGATIVE)
[2021-04-10 17:41] LABS: BACTERIA,URINE LARGE /HPF
[2021-04-10] MEDS ORDERED: CYCLOBENZAPRINE 10 MG (FLEXERIL) TAB PO STA (18:26)
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
[2021-04-10] MEDS ORDERED: CYCL10TA9 PO (18:34)
[2021-04-10] MEDS ORDERED: NITR100C PO (18:34)
[2021-04-10] MEDS ORDERED: TRM50T PO (18:34)
== END 2021-04-10 18:41 | disposition home or self-care (01) ==
LOC: EDUNIT# 17:03 → ER 17:06
DX: S33.5XXA Sprain of ligaments of lumbar spine, initial encounter (principal); M54.16 Radiculopathy, lumbar region; F32.9 Major depressive disorder, single episode, unspecified; F17.200 Nicotine dependence, unspecified, uncomplicated; Z79.899 Other long term (current) drug therapy; Y93.72 Activity, wrestling
CPT/HCPCS: 81000; 84703; 99283

== ENCOUNTER 2021-04-15 21:36 | Emergency (ER) | payer SELFPAY ==
[~2021-04-15] VITALS: Ht 177.8 cm; Wt 83.9 kg
[~2021-04-15 21:36] MED LIST changes: +NITR100C PO; +TRM50T PO
[2021-04-15] MEDS ORDERED: ONDANSETRON 4 MG/2 ML (SDV) Z0FRAN IVP ONE (22:00)
[2021-04-15] MEDS ORDERED: fentaNYL INJ 100 MCG/2 ML AMP IVP ONE (22:00)
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
[2021-04-15] MEDS ORDERED: ACHD5005 PO (22:35)
[2021-04-15] MEDS ORDERED: CYCL10TA9 PO (22:35)
[2021-04-15 22:39] VITALS: BP 154/76
== END 2021-04-15 22:39 | disposition home or self-care (01) ==
LOC: EDUNIT# 21:36 → ER FS 21:37
DX: M54.50 Low back pain, unspecified (principal); F17.210 Nicotine dependence, cigarettes, uncomplicated
CPT/HCPCS: 72128; 72131; 96374; 96375

== ENCOUNTER → 2021-08-09 | Outpatient (CLI) | payer MEDICAID ==
[~2021-08-09] MED LIST changes: +ACHD5005 PO; +CLIN-144 PO; -CLIN300C12 PO; +CYCL10TA25 PO; -CYCL10TA9 PO
--- NOTE | 2021-08-09 14:57 | Diagnostic Imaging Report ---
INDICATION: survey TECHNIQUE: Multiple real-time grayscale images were obtained over the gravid uterus. COMPARISON: None. FINDINGS: There are no prior studies available for comparison. FINDINGS: There is a single live fetus in breech presentation. heart motion was noted, and a rate of 143 BPM was recorded. There were no abnormalities identified, but there does appear to be a two-vessel cord. The growth parameters are fairly uniform. The placenta is posterior and on the left and low lying. There is no previa, however. The amniotic fluid volume is within normal limits. The cervix measures 4.7 cm in length. Biometrical measurements are as follows: Biparietal 5.10 cm, age 21 weeks 4 days. Head circumference 18.90 cm, age 21 weeks 2 days. Abdominal circumference 16.45 cm, age 21 weeks 4 days. Femur length 3.30 cm, age 20 weeks 3 days. Sonographic estimate age: 21 weeks 2 days. Sonographic estimated date of delivery: 12/18/2021. Estimated Weight: 393 gm (+/- 57 gm). LMP percentile: 93%. heart rate: 143 beats per minute. number: 1 of 1. IMPRESSION: 1. There is a single fetus of approximately 20 weeks 2 days gestation, +/- 1.5 weeks. The EDC is 12/18/2021. 2. There were no abnormalities identified. There is a two-vessel cord, however. 3. The growth parameters are fairly uniform. Dictated by: Dictated on workstation # [id number]
== END ==
LOC: RAD 12:30
PROVIDERS: ATTEND Obstetrics & Gynecology
DX: Z34.02 Encounter for supervision of normal first pregnancy, second trimester (principal); Z3A.20 20 weeks gestation of pregnancy
CPT/HCPCS: 76805

== ENCOUNTER 2021-09-26 22:24 | Outpatient (CLI) | payer MEDICAID ==
[~2021-09-26] VITALS: Ht 177.8 cm; Wt 139.1 kg
[2021-09-26 22:48] VITALS: BP 134/64
[2021-09-26 22:48] LABS: BILIRUBIN,URINE NEGATIVE (NEGATIVE); CLARITY,URINE CLEAR; COLOR,URINE YELLOW; GLUCOSE, URINE (UA) NEGATIVE (NEGATIVE); KETONES,URINE TRACE (NEGATIVE); LEUKOCYTE ESTERASE ,URINE TRACE (NEGATIVE); NITRITE,URINE NEGATIVE (NEGATIVE); PROTEIN,URINE NEGATIVE (NEGATIVE)
[2021-09-26 22:55] VITALS: BP 134/64
[2021-09-26 22:58] LABS: BACTERIA,URINE MODERATE /HPF
[2021-09-26 22:59] LABS: AMORPHOUS SEDIMENT,UR RARE AMOR URATES /LPF
[2021-09-26] MEDS ORDERED: NITROFURANTOIN 100 MG (MACROBID) CAPSULE PO ONE (23:15)
[2021-09-26] MEDS ORDERED: CITA20TA9 PO (23:20)
[2021-09-26] MEDS ORDERED: PREN-8 PO (23:20)
[2021-09-26] MEDS ORDERED: ARIP400S3 IM (23:20)
[2021-09-26] MEDS ORDERED: NITR-65 PO (23:22)
--- NOTE | 2021-09-27 08:30 | Physician Query-Final Dx ---
DION,09/27/21 0830: Clinic Account Progress/Dx Physician Query: Please give diagnosis Please include # weeks gestation Date of Service Sep 26, 2021 at 22:24 JACEK PRIETO DO 09/28/21 0701: Clinic Account Progress/Dx DIAGNOSIS: Diagnosis 26 week IUP Cramping UTI DION,JunSep 27, 2021 08:30 JACEK PRIETO DO Sep 28, 2021 07:01
== END 2021-09-26 23:32 ==
LOC: LDRP 22:24 → WSo 22:24
PROVIDERS: ATTEND Obstetrics & Gynecology
DX: O26.892 Other specified pregnancy related conditions, second trimester (principal); R10.9 Unspecified abdominal pain; Z3A.26 26 weeks gestation of pregnancy
CPT/HCPCS: 81000; 87088; 99213

== ENCOUNTER → 2021-11-14 | Outpatient (CLI) | payer MEDICAID ==
[~2021-11-14] MED LIST changes: +ACET-11 PO; -ACET1TAB43 PO; +ARIP400S3 IM; +CITA20TA9 PO; +METR375C PO; +NITR-65 PO; +ONDA4TAB11 PO; +PREN-8 PO
--- NOTE | 2021-11-14 12:01 | Diagnostic Imaging Report ---
INDICATION: TECHNIQUE: Multiple real-time grayscale images were obtained over the gravid uterus. COMPARISON: None FINDINGS: Single live intrauterine fetus vertex presentation. Placenta is posterior left and is low lying appearing to represent a marginal previa. Fetus is active. The amniotic fluid index is normal. Cervical length 5 cm. The biophysical profile was performed. breathing and good tone demonstrated. IMPRESSION: 1. Normal biophysical profile scoring 8 of potential 8 points. 2. Current measurements show average measurements for 34 week 5 day gestation with good correlation with LMP. 3. Posterior low-lying placenta with marginal previa. Biometrical measurements are as follows: Biparietal 8.83 cm, age 35 weeks 5 days. Head circumference 31.16 cm, age 35 weeks 0 days. Abdominal circumference 31.48 cm, age 35 weeks 3 days. Femur length 6.32 cm, age 32 weeks 5 days. Sonographic estimate age: 34 weeks 5 days. Sonographic estimated date of delivery: 12/21/2021. Estimated Weight: 2484 gm (+/- 363 gm). LMP percentile: 68%. heart rate: 126 beats per minute. number: 1 of 1. Dictated by: Dictated on workstation # [id number]
== END ==
LOC: RAD 10:00
PROVIDERS: ATTEND Nurse Practitioner Women's Health
DX: Z33.1 Pregnant state, incidental (principal)
CPT/HCPCS: 76805; 76819

== ENCOUNTER 2021-11-16 15:51 | Outpatient (CLI) | payer MEDICAID ==
[~2021-11-16] VITALS: Ht 177.8 cm; Wt 139.8 kg
[~2021-11-16 15:51] MED LIST changes: -METR375C PO; -ONDA4TAB11 PO
[2021-11-16 16:22] VITALS: BP 130/66
[2021-11-16 16:24] VITALS: BP 130/66
[2021-11-16 16:26] LABS: BILIRUBIN,URINE NEGATIVE (NEGATIVE); CLARITY,URINE CLEAR; COLOR,URINE YELLOW; GLUCOSE, URINE (UA) NEGATIVE (NEGATIVE); KETONES,URINE TRACE (NEGATIVE); LEUKOCYTE ESTERASE ,URINE NEGATIVE (NEGATIVE); NITRITE,URINE NEGATIVE (NEGATIVE); PROTEIN,URINE TRACE (NEGATIVE)
[2021-11-16 16:37] LABS: BACTERIA,URINE TRACE /HPF; SQUAMOUS EPITHELIAL CELL,UR 25-50 /HPF
[2021-11-16] MEDS ORDERED: ONDANSETRON 4 MG/2 ML (SDV) Z0FRAN ONE (16:56)
[2021-11-16] MEDS ORDERED: ONDANSETRON 4 MG/2 ML (SDV) Z0FRAN IVP ONE (17:00)
[2021-11-16] MEDS ORDERED: LACTATED RINGERS 1,000 ML IV ONE (17:00)
--- NOTE | 2021-11-16 17:41 | OB Triage Report ---
Standard Progress Note Progress Notes/Assess & Plan Date Seen by a Provider: November 16, 2021 Time Seen by a Provider: 17:35 Expected Date of Delivery: Dec 27, 2021 Gestational Age in Weeks: 34 Gestational Age in Days: 1 LMP/TERESA Comment: N/A Progress/Assessment & Plan S: Michelle Szymanski is a 31 yo at 34w1d who presents with complaints of lower back pain with associated nausea, emesis x3 and diarrhea x3 since yesterday evening. She reports that she has taken tylenol for her pain with mild relief in her symptoms. She denies contractions, LOF and VB. Reports normal movement. O: VS - Last 72 Hours, by Label 11/16/21 11/16/21 16:22 16:24 Temp 37.5 37.5 Pulse 88 88 Resp 20 20 Pulse Ox 98 98 O2 Delivery Room Air Room Air Laboratory Tests Test 11/16/21 16:10 Range/Units Urine Color YELLOW Urine Clarity CLEAR Urine pH 6.0 5-9 Urine Specific [place] 1.020 1.016-1.022 Urine Protein TRACE H NEGATIVE Urine Glucose (UA) NEGATIVE NEGATIVE Urine Ketones TRACE H NEGATIVE Urine Nitrite NEGATIVE NEGATIVE Urine Bilirubin NEGATIVE NEGATIVE Urine Urobilinogen 0.2 < = 1.0 MG/DL Urine Leukocyte Esterase NEGATIVE NEGATIVE Urine RBC (Auto) NEGATIVE NEGATIVE Urine RBC NONE /HPF Urine WBC 5-10 H /HPF Urine Squamous Epithelial Cells 25-50 H /HPF Urine Crystals NONE /LPF Urine Bacteria TRACE /HPF Urine Casts NONE /LPF Urine Mucus SMALL H /LPF Urine Culture Indicated YES PE: Gen: NAD CV: RRR Resp: CTAB Abdomen: obese, gravid uterus CE: FT/long/high FHT: 140, moderate variability, Accels present, Decels absent TOCO: irritable A/P: 31yo female at 34w1d here for r/o PTL with nausea/vomiting and diarrhea. # Abdominal pain: likely 2/2 dehydration. Will hydrate with 1 bolus of IVF. - UA and urine culture sent. - Vaginitis panel pending. - Will treat appropriately. # N/V: will administer 4mg zofran once and po challenge. # Dispo: pending labs and improvement. Final Diagnosis Abdominal pain in likely false labor nausea and vomiting in JENNA BURGOS MD November 16, 2021 17:41
[2021-11-16] MEDS ORDERED: METR375C PO (17:43)
[2021-11-16] MEDS ORDERED: ONDA4TAB11 PO (17:43)
[2021-11-16 18:22] VITALS: BP 130/66
== END 2021-11-16 18:35 | disposition home health service, planned readmission (86) ==
LOC: LDRP 15:51 → WSo 15:51
PROVIDERS: ATTEND Obstetrics & Gynecology
DX: O26.893 Other specified pregnancy related conditions, third trimester (principal); O21.9 Vomiting of pregnancy, unspecified; R10.9 Unspecified abdominal pain; Z3A.34 34 weeks gestation of pregnancy
CPT/HCPCS: 81000; 87088; 87210; 96361; 96374; 99213

== ENCOUNTER 2021-12-19 06:00 | Inpatient (IN) | payer MEDICAID ==
[2021-12-19] VITALS (60 sets, daily range): BP systolic 99–166; BP diastolic 53–97
[~2021-12-19] VITALS: Ht 177.8 cm; Wt 142.0 kg
[~2021-12-19 06:00] MED LIST changes: +METR375C PO; +ONDA4TAB11 PO
[2021-12-19] MEDS ORDERED: ceFAZolin 2 GM IV Premixed 50 ML IV SCH (06:51)
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
[2021-12-19 07:24] LABS: BASOPHILS % (AUTO) 0 % (0-10); EOSINOPHILS # (AUTO) 0.1 10^3/uL (0.0-0.3); EOSINOPHILS % (AUTO) 1 % (0-10); HEMATOCRIT 38 % (35-52); HEMOGLOBIN 12.8 g/dL (11.5-16.0); LYMPHOCYTES # (AUTO) 2.7 10^3/uL (1.0-4.0); LYMPHOCYTES % (AUTO) 22 % (12-44); MEAN CORPUSCULAR HEMOGLOBIN 32 pg (25-34); MEAN CORPUSCULAR HGB CONC 33 g/dL (32-36); MEAN CORPUSCULAR VOLUME 95 fL (80-99); MEAN PLATELET VOLUME 10.4 fL (9.0-12.2); MONOCYTES # (AUTO) 0.8 10^3/uL (0.0-1.0); MONOCYTES % (AUTO) 7 % (0-12); NEUTROPHILS # (AUTO) 8.5 10^3/uL (1.8-7.8); NEUTROPHILS % (AUTO) 70 % (42-75); PLATELET COUNT 238 10^3/uL (130-400); WHITE BLOOD COUNT 12.2 10^3/uL (4.3-11.0)
[2021-12-19] MEDS: D5 LR IV SOLUTION 1,000 ML IV SCH ×3 (07:41→23:58)
[2021-12-19] MEDS ORDERED: OXYTOCIN PRE-MIX DRIP 500 ML IV SCH ×2 (08:15→18:45)
[2021-12-19] MEDS ORDERED: fentaNYL 2 mcg/ml BUPIVA 0.125 100 ML ONE (09:39)
[2021-12-19] MEDS ORDERED: fentaNYL INJ 100 MCG/2 ML AMP ONE (09:41)
[2021-12-19] MEDS ORDERED: BUPIVACAINE 0.25% 30 ML (SENSORCAINE) VIAL ONE (09:41)
[2021-12-19] MEDS: EPIDURAL (fentaNYL 2 MCG/ML BUPIVA 0.125%)100 ML BAG EPI PRN ×2 (10:05→16:23)
[2021-12-19] MEDS ORDERED: ONDANSETRON 4 MG/2 ML (SDV) Z0FRAN IV PRN (11:15)
[2021-12-19] MEDS ORDERED: METOCLOPRAMIDE INJ 10 MG/2 ML (REGLAN) IV PRN (11:15)
[2021-12-19] MEDS ORDERED: NALOXONE 0.4 MG/ML 1 ML (NARCAN) VIAL IV PRN ×2 (11:15)
[2021-12-19] MEDS ORDERED: diphenhydrAMINE 50 MG/ML INJ (BENADRYL) IV PRN (11:15)
[2021-12-19] MEDS ORDERED: LACTATED RINGERS 1,000 ML IV SCH (11:15)
[2021-12-19] MEDS ORDERED: ceFAZolin INJECTION 1,000 MG in NS (IVPB) 50 ML IV SCH (15:00)
[2021-12-19] MEDS ORDERED: LIDOCAINE/EPI 2% 1:200,00 (XYLOCAINE) 10 ML VIAL ONE (17:52)
--- NOTE | 2021-12-19 18:37 | OB Labor & Delivery Record ---
Labor & Delivery This patient delivered at 38 weeks gestation a viable male at term spontaneous vaginal livery over intact perineum under epidural analgesia. was bulb suctioned on delivery the head and again on completion of delivery. Umbilical cord with good pulses was doubly clamped the father cut the cord the baby was passed to mom's abdomen. time was 1822 weight is 6 pounds 6 ounces Apgars are 7 and 9 at 1 and 5 minutes respectively Cord blood pH 7.14 with a base excess of -2.1 Cord blood were obtained the placenta delivered spontaneously Tobin it was normal except for having a two-vessel cord. Nuchal Nuchal cord x1 was easily released After delivery of the head before completion of delivery. Cervix vagina rectum perineum were examined and found intact. After clinical completion of delivery. Blood loss was around 200 cc. Patient tolerated delivery well and remained in the LDR for recovery the baby remained with mom. JOHNATHON SY MD Dec 19, 2021 18:37
[2021-12-19] MEDS ORDERED: TETANUS,DIPTH,PERTUSS P/F (BOOSTRIX) 0.5 ML VIAL IM ONE (18:45)
[2021-12-19] MEDS ORDERED: BENZOCAINE/MENTHOL (DERMOPLAST) 56 ML CAN TP PRN (18:45)
[2021-12-19] MEDS ORDERED: ONDANSETRON 4 MG/2 ML (SDV) Z0FRAN IVP PRN (18:45)
[2021-12-19] MEDS ORDERED: oxyCODONE/APAP 5/325MG (PERCOCET 5) TABLET PO PRN (18:45)
[2021-12-19] MEDS ORDERED: METHYLERGONOVINE 0.2 MG/ML (METHERGINE) AMP ONE ×3 (18:57→19:42)
[2021-12-19] MEDS ORDERED: METHYLERGONOVINE 0.2 MG/ML (METHERGINE) AMP IM ONE ×2 (19:00→19:45)
[2021-12-19] MEDS: CATHETER FLUSH 10 ML SYR IV SCH ×2 (22:00→22:33)
[2021-12-19] MEDS: KETOROLAC 30 MG/ML VIAL IVP SCH (22:21)
[2021-12-19] MEDS: DOCUSATE SODIUM 100 MG (COLACE) CAP PO SCH (23:57)
[2021-12-20] VITALS: BP 124/58
[2021-12-20 04:35] VITALS: BP 112/52
[2021-12-20] MEDS: CATHETER FLUSH 10 ML SYR IV SCH (04:35)
[2021-12-20] MEDS: KETOROLAC 30 MG/ML VIAL IVP SCH ×2 (04:35→09:37)
[2021-12-20 09:15] VITALS: BP 121/57
[2021-12-20] MEDS: DOCUSATE SODIUM 100 MG (COLACE) CAP PO SCH ×2 (09:37→21:51)
--- NOTE | 2021-12-20 10:31 | Postpartum Progress Note ---
Note Note Day # 1 Subjective: Patient is without complaints. Ambulating, voiding. Tolerating a regular diet without nausea or vomiting. Normal lochia. Pain is well controlled with oral pain medications. Breast feeding. Physical Exam: General - Alert and oriented, no apparent distress Abdomen - Soft, appropriately tender to palpation, non-distended, fundus firm at umbilicus Extremities - no edema, negative Gretchen's bilaterally Assessment: Post- day # 1, status post vaginal delivery. Recovering well, hemodynamically stable Acute blood loss anemia Two vessel cord Plan: Routine care. Encourage breast feeding. Encourage ambulation. Ferrous sulfate supplementation. Plan for discharge tomorrow Vitals - Labs Vital Signs - I&O Vital Signs Date Time Temp Pulse Resp B/P (MAP) Pulse Ox O2 Delivery O2 Flow Rate FiO2 12/20/21 09:15 36.5 74 18 121/57 (78) 98 Room Air 12/20/21 04:35 36.3 59 18 112/52 (72) 98 Room Air 12/20/21 00:00 36.0 62 18 124/58 (80) 98 Room Air 12/19/21 22:16 36.0 62 18 124/58 (80) Room Air 12/19/21 21:47 36.0 71 18 130/67 (88) Room Air 12/19/21 21:17 66 18 134/61 (85) Room Air 12/19/21 20:47 63 18 124/58 (80) Room Air 12/19/21 20:33 36.2 74 18 130/62 (84) Room Air 12/19/21 20:18 83 18 123/58 (79) Room Air 12/19/21 20:03 36.0 65 18 125/63 (83) Room Air 12/19/21 19:48 70 18 131/68 (89) Room Air 12/19/21 19:33 36.0 74 18 132/76 (94) Room Air 12/19/21 19:18 49 18 145/61 (89) Room Air 12/19/21 19:03 88 18 140/64 (89) Room Air 12/19/21 18:33 36.3 99 18 146/65 (92) Room Air 12/19/21 18:15 54 18 155/72 (99) Non Rebreather 15.00 12/19/21 18:00 Non Rebreather 15.00 12/19/21 17:45 60 18 142/77 (98) Room Air 12/19/21 17:30 64 18 135/77 (96) Room Air 12/19/21 17:15 62 18 132/78 (96) Room Air 12/19/21 17:00 65 18 131/76 (94) Room Air 12/19/21 16:45 70 18 126/75 (92) Room Air 12/19/21 16:30 36.0 Room Air 12/19/21 16:15 63 18 127/56 (79) Room Air 12/19/21 16:00 69 18 125/67 (86) Room Air 12/19/21 15:45 69 18 130/73 (92) Room Air 12/19/21 15:30 58 18 129/73 (91) Room Air 12/19/21 15:15 74 18 125/74 (91) Room Air 12/19/21 15:00 51 18 106/58 (74) Room Air 12/19/21 14:45 54 18 105/55 (72) Room Air 12/19/21 14:30 70 18 99/55 (70) Room Air 12/19/21 14:15 36.3 66 18 123/66 (85) Room Air 12/19/21 14:00 85 18 112/62 (79) Room Air 12/19/21 13:45 66 18 117/64 (81) Room Air 12/19/21 13:30 67 18 124/63 (83) Room Air 12/19/21 13:15 74 18 126/67 (86) Room Air 12/19/21 13:00 64 18 125/67 (86) Room Air 12/19/21 12:45 59 18 127/69 (88) Room Air 12/19/21 12:30 59 18 135/68 (90) Room Air 12/19/21 12:15 36.7 57 18 99/53 (68) 97 Room Air 12/19/21 12:00 63 18 117/55 (75) 97 Room Air 12/19/21 11:45 63 18 110/55 (73) 97 Room Air 12/19/21 11:30 36.3 64 18 110/55 (73) 99 Room Air 12/19/21 11:15 65 18 114/57 (76) 100 Room Air 12/19/21 11:00 64 18 113/56 (75) 100 Room Air 12/19/21 10:45 57 18 100 Room Air I & O 12/20/21 07:00 Intake Total 3400 ml Output Total 360 ml Balance 3040 ml KAYCEE BARNES APRN 28, 2022 10:31
[2021-12-20 10:51] LABS: BASOPHILS % (AUTO) 0 % (0-10); EOSINOPHILS # (AUTO) 0.1 10^3/uL (0.0-0.3); EOSINOPHILS % (AUTO) 1 % (0-10); HEMATOCRIT 31 % (35-52); HEMOGLOBIN 10.4 g/dL (11.5-16.0); LYMPHOCYTES # (AUTO) 2.1 10^3/uL (1.0-4.0); LYMPHOCYTES % (AUTO) 16 % (12-44); MEAN CORPUSCULAR HEMOGLOBIN 32 pg (25-34); MEAN CORPUSCULAR HGB CONC 33 g/dL (32-36); MEAN CORPUSCULAR VOLUME 96 fL (80-99); MEAN PLATELET VOLUME 10.3 fL (9.0-12.2); MONOCYTES # (AUTO) 0.8 10^3/uL (0.0-1.0); MONOCYTES % (AUTO) 6 % (0-12); NEUTROPHILS # (AUTO) 9.6 10^3/uL (1.8-7.8); NEUTROPHILS % (AUTO) 76 % (42-75); PLATELET COUNT 212 10^3/uL (130-400); WHITE BLOOD COUNT 12.7 10^3/uL (4.3-11.0)
--- NOTE | 2021-12-20 11:34 | Anesthesia-Regional Post-Op ---
Regional Patient Condition Mental Status: Alert, Oriented x3 Circulation: Same as Pre-Op Headache: Absent Sensation: Full Recovery Motor Block: Absent Post Op Complications Complications None Follow Up Care/Instructions Patient Instructions None needed. Anesthesia/Patient Condition Patient is doing well, no complaints, stable vital signs, no apparent adverse anesthesia problems. No complications reported per nursing. ROGELIO BHATT CRNA Dec 20, 2021 11:34
[2021-12-20 12:30] VITALS: BP 124/68
[2021-12-20 16:15] VITALS: BP 119/59
[2021-12-20] MEDS: IBUPROFEN 800 MG (MOTRIN) TAB PO SCH ×2 (16:18→21:51)
[2021-12-20] MEDS ORDERED: IBUPROFEN 800 MG (MOTRIN) TAB PO SCH (19:00)
[2021-12-20 21:51] VITALS: BP 129/59
[2021-12-21 03:32] VITALS: BP 119/56
[2021-12-21] MEDS: IBUPROFEN 800 MG (MOTRIN) TAB PO SCH ×2 (03:32→09:42)
[2021-12-21 09:30] VITALS: BP 118/61
[2021-12-21] MEDS: DOCUSATE SODIUM 100 MG (COLACE) CAP PO SCH (09:42)
--- NOTE | 2021-12-21 09:45 | Discharge Inst-Women's Service ---
Discharge Inst-Women's Serv Depart Medication/Instructions New, Converted or Re-Newed RX: Transmitted to Pharmacy Final Diagnosis PPD 2 NVD Problems Reviewed?: Yes Consults/Follow Up Additional Follow Up: Yes Orders/Referrals Dr. Prieto in 6 weeks Activity Activity: Activity as Tolerated Driving Instructions: No Driving for 1 Week NO SMOKING: NO SMOKING Nothing Inside Vagina: No Douching, No [place], No Tampons Diet Discharge Diet: No Restrictions Symptoms to Report to : Bleeding Excessive, Pain Increased, Fever Over 101 Degrees F, Vaginal Bleeding Increase, Questions/Concerns For Any Problems or Questions: Contact Your Physician JACEK PRIETO DO Dec 21, 2021 09:45
--- NOTE | 2021-12-21 09:45 | Postpartum Progress Note ---
Note Note Day # 2 Subjective: Patient is without complaints. Ambulating, voiding. Tolerating a regular diet without nausea or vomiting. Normal lochia. Pain is well controlled with oral pain medications. \ Objective: Physical Exam: General - Alert and oriented, no apparent distress Abdomen - Soft, appropriately tender to palpation, non-distended, fundus firm at umbilicus Extremities - no edema, negative Gretchen's bilaterally Assessment: PPD 2 NVD Acute blood loss anemia Plan: Routine care. Encourage breast feeding. Encourage ambulation. Ferrous sulfate supplementation. Plan for discharge today Vitals - Labs Vital Signs - I&O Vital Signs Date Time Temp Pulse Resp B/P (MAP) Pulse Ox O2 Delivery O2 Flow Rate FiO2 12/21/21 03:32 36.2 72 18 119/56 (77) 98 Room Air 12/20/21 21:51 36.4 72 18 129/59 (82) 98 Room Air 12/20/21 16:15 36.6 78 18 119/59 (79) 98 Room Air 12/20/21 12:30 36.6 58 18 124/68 (86) 98 Room Air Labs Laboratory Tests 12/20/21 10:43: White Blood Count 12.7H, Red Blood Count 3.25L, Hemoglobin 10.4L, Hematocrit 31L , Mean Corpuscular Volume 96, Mean Corpuscular Hemoglobin 32, Mean Corpuscular Hemoglobin Concent 33, Red Cell Distribution Width 13.9, Platelet Count 212, Mean Platelet Volume 10.3, Immature Granulocyte % (Auto) 1, Neutrophils (%) (Auto) 76H, Lymphocytes (%) (Auto) 16, Monocytes (%) (Auto) 6, Eosinophils (%) (Auto) 1, Basophils (%) (Auto) 0, Neutrophils # (Auto) 9.6H, Lymphocytes # (Auto) 2.1, Monocytes # (Auto) 0.8, Eosinophils # (Auto) 0.1, Basophils # (Auto) 0.0, Immature Granulocyte # (Auto) 0.1 JACEK PRIETO DO Dec 21, 2021 09:44
[2021-12-21] MEDS ORDERED: DOCU100C37 PO (09:46)
[2021-12-21] MEDS ORDERED: BENZ78AE5 TP (09:46)
[2021-12-21] MEDS ORDERED: IBUP-1780 PO (09:46)
[2021-12-21 12:55] VITALS: BP 118/61
== END 2021-12-21 12:55 | disposition home or self-care (01) | DRG 807 ==
LOC: LDRP 06:06
PROVIDERS: ADMIT Obstetrics & Gynecology; ATTEND Obstetrics & Gynecology
PROC: 10E0XZZ Delivery of Products of Conception, External Approach (ICD-10-PCS; principal; 2021-12-19)
DX: O69.89X0 Labor and delivery complicated by other cord complications, not applicable or unspecified (principal); Z37.0 Single live birth; O69.81X0 Labor and delivery complicated by cord around neck, without compression, not applicable or unspecified; O99.824 Streptococcus B carrier state complicating childbirth; Z3A.38 38 weeks gestation of pregnancy; Z88.2 Allergy status to sulfonamides; Z88.8 Allergy status to other drugs, medicaments and biological substances
CPT/HCPCS: 36415; 83033; 85025; 86850; 86900; 86901